=== PATIENT | male | born 1990 | race Caucasian/White ===

== ENCOUNTER 2024-02-12 22:29 | Emergency (ER) | payer BC ==
[~2024-02-12] VITALS: Ht 180.3 cm; Wt 74.8 kg
[2024-02-12] MEDS: LIDOCAINE /MPF 1% VIAL 5 ML VIAL IJ ONE (23:06)
[2024-02-12] MEDS ORDERED: TDAP [DIPH/PERTUSSIS/TET] 0.5 ML VIAL IM ONE (23:07)
[2024-02-12] MEDS ORDERED: LIDOCAINE /MPF 1% VIAL 5 ML VIAL ONE (23:07)
[2024-02-12] MEDS: TDAP [DIPH/PERTUSSIS/TET] 0.5 ML VIAL IM ONE (23:13)
[2024-02-12] MEDS ORDERED: BACITRACIN ZINC OINT PACKET 1 EA PACKET TP ONE (23:34)
[2024-02-12] MEDS: BACITRACIN ZINC OINT PACKET 1 EA PACKET TP ONE (23:35)
[2024-02-12 23:43] VITALS: BP 129/78; TEMP 98.4; O2SAT 98
== END 2024-02-12 23:43 | disposition home or self-care (01) ==
LOC: ER 22:35
DX: S01.01XA Laceration without foreign body of scalp, initial encounter (principal); Y04.2XXA Assault by strike against or bumped into by another person, initial encounter; Y93.89 Activity, other specified; Y92.89 Other specified places as the place of occurrence of the external cause; Y99.8 Other external cause status
CPT/HCPCS: 99283; 90471; 90715; J3490